=== PATIENT | male | born 1980 | race Caucasian/White ===

== ENCOUNTER 2016-06-27 15:16 | Day surgery (SDC) | payer BC ==
[~2016-06-27] VITALS: Ht 165.1 cm; Wt 64.5 kg
[2016-06-27] MEDS ORDERED: PROAIR HFA8.5 GM IH (15:54)
[2016-06-27] MEDS ORDERED: DUONEB 2.5-0.5 M3 ML AEROSOL (15:55)
[2016-06-27 16:05] VITALS: BP 147/98
[2016-06-27 22:10] VITALS: BP 117/77
== END 2016-06-27 22:45 | disposition home or self-care (01) ==
LOC: SDC 15:16
PROC: 3E0CXSF Introduction of Other Gas into Eye, External Approach (ICD-10-PCS; principal; 2016-06-27)
PROC: 08QE3ZZ Repair Right Retina, Percutaneous Approach (ICD-10-PCS; principal; 2016-06-27)
PROC: 08B43ZZ Excision of Right Vitreous, Percutaneous Approach (ICD-10-PCS; principal; 2016-06-27)
PROC: 085E3ZZ Destruction of Right Retina, Percutaneous Approach (ICD-10-PCS; principal; 2016-06-27)
DX: H33.21 Serous retinal detachment, right eye (principal); H35.21 Other non-diabetic proliferative retinopathy, right eye; J45.909 Unspecified asthma, uncomplicated; Z79.51 Long term (current) use of inhaled steroids
CPT/HCPCS: 93005; 94640; 99202; J0330; J0690; J2250; J2405; J3010; J3300

== ENCOUNTER 2017-06-02 08:58 | Day surgery (SDC) | payer OTHER ==
[~2017-06-02] VITALS: Ht 165.1 cm; Wt 68.0 kg
[~2017-06-02 08:58] MED LIST: COMBIGAN O20 DROP/5 RIGHT EYE; DUONEB 2.5-0.5 M3 ML AEROSOL; OMNIPRED10 ML RIGHT EYE; PREDNISONE5 M1 PO; PROAIR HFA8.5 GM IH
[2017-06-02 09:42] VITALS: BP 126/80
[2017-06-02 13:52] VITALS: BP 108/58
[2017-06-02 14:14] VITALS: BP 100/64
== END 2017-06-02 14:15 | disposition home or self-care (01) ==
LOC: SDC 08:58
DX: H33.41 Traction detachment of retina, right eye (principal); J45.20 Mild intermittent asthma, uncomplicated; Z86.69 Personal history of other diseases of the nervous system and sense organs; Z82.49 Family history of ischemic heart disease and other diseases of the circulatory system; Z82.5 Family history of asthma and other chronic lower respiratory diseases
CPT/HCPCS: 93005; 94640; J0690; J1100; J1170; J2250; J2405; J3010; J3300